=== PATIENT | female | born 1935 | race Caucasian/White ===

== ENCOUNTER → 2017-01-15 | Outpatient (CLI) | payer OTHER ==
[~2017-01-15] MED LIST: ALEN5TAB2 PO; AMLO5TAB2 PO; ASPI-496 PO; CALC-141 PO; LACT1CAP40 PO; LOSA50TA6 PO; OMEP10CA4 PO; POLY17PO5 PO; TRAM-47 PO
== END | disposition home or self-care (01) ==
LOC: CFH 14:16
PROVIDERS: ATTEND Genetic Counselor, MS
DX: Z13.820 Encounter for screening for osteoporosis (principal); M81.0 Age-related osteoporosis without current pathological fracture
CPT/HCPCS: 77080